=== PATIENT | female | born 1945 | race Caucasian/White ===

== ENCOUNTER → 2016-06-05 | Outpatient (CLI) | payer OTHER | END | disposition home or self-care (01) | DX: M17.11 Unilateral primary osteoarthritis, right knee (principal); R26.2 Difficulty in walking, not elsewhere classified; M62.81 Muscle weakness (generalized); M25.661 Stiffness of right knee, not elsewhere classified | CPT/HCPCS: 97110 GP; 97150 GO; 97161 GP; 97165 GO; G8978 GP; G8979 GP; G8980 GP; G8987 GO; G8988 GO; G8989 GO ==

== ENCOUNTER 2016-07-02 06:49 | Inpatient (IN) | payer OTHER ==
[~2016-07-02] VITALS: Ht 170.2 cm; Wt 99.0 kg
[~2016-07-02 06:49] MED LIST: ADVIL200 MG PO; ASCORBIC ACID100 MG PO; CALCIUM 500 +1 EACH PO; IRON325 M1 PO; LIPITOR40 MG PO; MAGNESIUM30 MG PO; MULTI-DAY VITA1 EACH PO; NEURONTIN300 MG PO; PRILOSEC20 MG PO; PROVENTIL HFA6.7 GM IH; TESSALON PERLE100 MG PO; VITAMIN B12 100MCG PO; VITAMIN D-3 401 EACH PO; ZESTORETIC 10-1 EAC1 PO; ZOLOFT50 MG PO
[2016-07-02 07:26] VITALS: BP 132/77
[2016-07-02 13:20] VITALS: BP 130/89
[2016-07-02 13:50] LABS: HEMATOCRIT 41.2 % (36.0-46.0); MCH 30.3 PG (29.0-34.0); MCHC 31.8 G/DL (30.0-36.0); MCV 95.4 FL (83-99); MEAN PLAT.VOLUME 9.6 uM^3 (9.5-12.4); PLATELET COUNT 204 K/uL (156-360); RBC DIS.WIDTH-CV 12.6 % (11.8-14.6); RBC DIS.WIDTH-SD 44.1 % (39-53); RED BLOOD COUNT 4.32 M/uL (3.80-5.20); WHITE BLOOD COUNT 5.7 K/uL (4.1-10.2)
[2016-07-02 16:09] VITALS: BP 157/65
[2016-07-02 20:10] VITALS: BP 125/68
[2016-07-03 00:14] VITALS: BP 114/57
[2016-07-03 04:10] VITALS: BP 119/67
[2016-07-03 05:54] LABS: HEMATOCRIT 39.7 % (36.0-46.0); MCV 95.7 FL (83-99)
[2016-07-03 07:34] LABS: ANION GAP 7 MEQ/L (2-14); CHLORIDE 99 MEQ/L (99-109); GFR ESTIMATE (CALCULATED) 58 mL/min/; GLUCOSE 119 mg/dL (70-99); POTASSIUM 4.2 MEQ/L (3.7-5.4); SAMPLE HEMOLYSIS CHECK 0; SAMPLE ICTERIC CHECK 0; SAMPLE LIPEMIA CHECK 0; SODIUM 134 MEQ/L (136-147); UREA NITROGEN (BUN) 15 mg/dL (9-23)
[2016-07-03 08:00] VITALS: BP 113/53
[2016-07-03 12:23] VITALS: BP 142/64
[2016-07-03 16:14] VITALS: BP 126/58
[2016-07-03 20:22] VITALS: BP 113/53
[2016-07-04 00:18] VITALS: BP 128/60
[2016-07-04 04:20] VITALS: BP 112/56
[2016-07-04 05:47] LABS: HEMATOCRIT 35.5 % (36.0-46.0); MCV 94.9 FL (83-99)
[2016-07-04 07:30] VITALS: BP 108/55
[2016-07-04] MEDS ORDERED: IRON325 M1 PO (08:46)
[2016-07-04] MEDS ORDERED: ENDOCET 5-3251 EACH PO (08:48)
[2016-07-04] MEDS ORDERED: CELECOXIB200 MG PO (08:48)
[2016-07-04] MEDS ORDERED: LOVENOX40 MG/0.4 SC (08:48)
[2016-07-04 09:08] LABS: ANION GAP 6 MEQ/L (2-14); CHLORIDE 96 MEQ/L (99-109); GFR ESTIMATE (CALCULATED) > 59 mL/min/; GLUCOSE 105 mg/dL (70-99); POTASSIUM 4.4 MEQ/L (3.7-5.4); SAMPLE HEMOLYSIS CHECK 0; SAMPLE ICTERIC CHECK 0; SAMPLE LIPEMIA CHECK 0; SODIUM 132 MEQ/L (136-147); UREA NITROGEN (BUN) 13 mg/dL (9-23)
[2016-07-04 11:52] VITALS: BP 103/52
[2016-07-04 15:55] VITALS: BP 114/55
[2016-07-04 19:42] VITALS: BP 127/54
[2016-07-05 00:09] VITALS: BP 129/47
[2016-07-05 03:50] VITALS: BP 123/58
[2016-07-05 08:00] VITALS: BP 125/58
[2016-07-05] MEDS ORDERED: HYDROCODON-ACE1 EAC7 PO (08:55)
== END 2016-07-05 11:01 | DRG 470 ==
LOC: 2SOUTH 06:49 → 3WEST 13:14 → 2SOUTH 14:06 → 3WEST 07-05 11:01
PROVIDERS: Orthopaedic Surgery; Physician Assistant
PROC: 0SRC0J9 Replacement of Right Knee Joint with Synthetic Substitute, Cemented, Open Approach (ICD-10-PCS; principal; 2016-07-02)
DX: M17.11 Unilateral primary osteoarthritis, right knee (principal); I10 Essential (primary) hypertension; M25.561 Pain in right knee; E78.00 Pure hypercholesterolemia, unspecified; K21.9 Gastro-esophageal reflux disease without esophagitis; F32.9 Major depressive disorder, single episode, unspecified
CPT/HCPCS: 73560; 80048; 84295; 85014; 85018; 85027; 99202; J0690; J1170; J1650; J2250; J2405; J7050

== ENCOUNTER → 2017-01-16 | Outpatient (CLI) | payer OTHER ==
[~2017-01-16] MED LIST changes: +CELECOXIB200 MG PO; +ENDOCET 5-3251 EACH PO; +HYDROCODON-ACE1 EAC7 PO; +LOVENOX40 MG/0.4 SC
== END | disposition home or self-care (01) ==
LOC: NUC 10:40
DX: M19.072 Primary osteoarthritis, left ankle and foot (principal); M19.071 Primary osteoarthritis, right ankle and foot; Z96.653 Presence of artificial knee joint, bilateral
CPT/HCPCS: 78315; A9503